=== PATIENT | female | born 1990 | race Caucasian/White ===

== ENCOUNTER 2017-04-15 18:53 | Emergency (ER) | payer BC ==
[~2017-04-15] VITALS: Ht 182.9 cm; Wt 113.4 kg
[2017-04-15 19:05] VITALS: BP_SYST 146
[2017-04-15] MEDS: CEPHALEXIN 500 MG CAPSULE PO ONE (20:02)
[2017-04-15] MEDS: SULFAMETHOXAZOLE/TRIMETHOPR DS 1 TABLET PO ONE (20:02)
[2017-04-15] MEDS: KETOROLAC TROMETHAMINE 60 MG/2 ML VIAL IM ONE (20:04)
[2017-04-15] MEDS: DIPH-TET-PERTUS Vaccine 0.5 ML VIAL (ADACEL) I.M. ONE (20:08)
[2017-04-15 20:21] VITALS: BP_SYST 146
[2017-04-15] MEDS: LIDOCAINE 2%, 20 ML MDV INJ ONE (20:25)
== END 2017-04-15 20:21 | disposition home or self-care (01) ==
LOC: SED 18:53
DX: L02.611 Cutaneous abscess of right foot (principal); L03.115 Cellulitis of right lower limb; G43.909 Migraine, unspecified, not intractable, without status migrainosus
CPT/HCPCS: 10060; 81025; 90471; 90715; 96372; 99284; J1885; J2001